=== PATIENT | female | born 1985 | race Caucasian/White ===

== ENCOUNTER 2023-09-23 13:41 | Emergency (ER) | payer OTHER, SELFPAY ==
[2023-09-23] MEDS ORDERED: Ondansetron PF 4 MG/2 ML Vial ONE ×2 (14:08→16:17)
[2023-09-23] MEDS ORDERED: Sodium Chloride 0.9% 1,000 ML ONE (14:08)
[2023-09-23] MEDS ORDERED: Morphine 4 MG/ML VIAL ONE ×3 (14:23→17:44)
[2023-09-23 14:24] LABS: #Lymphocytes 0.8 thou/uL (1.20-3.40); #Monocytes 0.6 thou/uL (0.11-0.59); #Neutrophils 6.3 thou/uL (1.40-6.50); %Basophils 0.5 % (0.0-1.0); %Eosinophils 0.6 % (0.0-10.0); %Lymphocytes 10.3 % (21.0-51.0); %Monocytes 7.3 % (0.0-10.0); %Neutrophils 81.3 % (42.0-75.0); Hematocrit 37.3 % (36.0-47.0); Mean Corpuscular HGB CONC 29.6 g/dL (32.0-36.0); Mean Corpuscular Hemoglobin 19.3 pg (27.0-31.0); Mean Corpuscular Volume 65.3 fl (78.0-98.0); Mean Platelet Volume 9.8 fL (7.4-10.4); Platelet Count 159 10x3/uL (130-400); Red Blood Cell (RBC) Count 5.71 mill/uL (4.20-5.40); White Blood Cell (WBC) Count 7.7 10x3/uL (4.8-10.8)
[2023-09-23 14:28] LABS: ALT (SGPT) 20 U/L (8-55); AST (SGOT) 27 U/L (5-34); Albumin 4.2 g/dL (3.5-5.0); Alkaline Phosphatase 53 U/L (40-110); Anion Gap 18 mmol/L (10-20); BUN (Urea Nitrogen) 8 mg/dL (7.0-18.7); Bilirubin, Total 0.5 mg/dL (0.2-1.2); Calc. Creatinine Clearance 0 mL/min (70-130); Calcium 9.5 mg/dL (7.8-10.44); Carbon Dioxide 19 mmol/L (22-29); Chloride 106 mmol/L (98-107); Estimated GFR 108; Globulin 3.8 g/dL (2.4-3.5); Glucose 126 mg/dL (70-105); Lipase 39 U/L (8-78); Potassium 4.2 mmol/L (3.5-5.1); Sodium 139 mmol/L (136-145)
[2023-09-23] MEDS ORDERED: Benzocaine 20% Spray 60 ML CAN ONE (15:49)
[2023-09-23] MEDS ORDERED: Lidocaine 2% Viscous 100 ML BOTTLE ONE (16:22)
[2023-09-23] MEDS ORDERED: diphenhydrAMINE 50 MG/ML VIAL ONE (18:03)
== END 2023-09-23 18:49 | disposition short-term general hospital (02) ==
LOC: NAV ERS 13:41
DX: K56.609 Unspecified intestinal obstruction, unspecified as to partial versus complete obstruction (principal); F17.210 Nicotine dependence, cigarettes, uncomplicated
CPT/HCPCS: 71045; 74177; 80053; 83690; 85025; 96361; 96374; 96375; 96376; J1200; J2405

== ENCOUNTER 2023-10-26 02:37 | Emergency (ER) | payer OTHER ==
[2023-10-26 03:32] LABS: SARS-CoV-2 E Target Positive; SARS-CoV-2 N2 Target Positive; SARS-CoV-2 NAA Rapid Test DETECTED (NotDetected); SARS-CoV-2 RdRP gene Positive
== END 2023-10-26 03:14 | disposition home or self-care (01) ==
LOC: NAV ERS 02:37
DX: B34.9 Viral infection, unspecified (principal); H66.91 Otitis media, unspecified, right ear; F17.290 Nicotine dependence, other tobacco product, uncomplicated
CPT/HCPCS: 99283; U0002

== ENCOUNTER 2023-11-29 21:18 | Emergency (ER) | payer OTHER ==
[2023-11-29 22:32] LABS: SARS-CoV-2 E Target Negative; SARS-CoV-2 N2 Target Negative; SARS-CoV-2 NAA Rapid Test Not Detected (NotDetected); SARS-CoV-2 RdRP gene Negative
== END 2023-11-29 23:29 | disposition home or self-care (01) ==
LOC: NAV ERS 21:18
DX: R06.02 Shortness of breath (principal); R42 Dizziness and giddiness; F17.290 Nicotine dependence, other tobacco product, uncomplicated
CPT/HCPCS: 71046; 87804; 93005; U0002